=== PATIENT | female | born 1985 ===

== ENCOUNTER 2017-06-15 21:10 | Emergency (ER) | payer SELFPAY ==
[2017-06-15 21:21] VITALS: BP 154/90; PULSE 77; RESP 20; TEMP 97.6; O2SAT 100
[2017-06-15] MEDS ORDERED: Tetanus/Diphtheria Toxoids 0.5 ml Syringe IM ONE ×2 (21:24→21:28)
[2017-06-15] MEDS ORDERED: Amoxicillin-Clav 875-125 mg Tab PO STA (21:30)
--- NOTE | 2017-06-15 21:31 | C.PDOC ---
History Of Present Illness 32 year old female presents to the ED for evaluation of a dog bite to her nose. Patient states her dog was sleeping and she went to move it, therefore startling the dog, who lunged at her nose. The dog is of mix breed, and up to date with all vaccines. Patients tetanus is not up to date. Time Seen by Provider: 06/15/17 21:22 Chief Complaint (Nursing): Bite History Per: Patient History/Exam Limitations: no limitations Onset/Duration Of Symptoms: Hrs Current Symptoms Are (Timing): Still Present - Animal Bite Description Of The Attack: Tried To Pet Animal Description Of The Animal: Family Pet Reports Animal Appears: Well Reports Animal's Immunization Status: UTD Past Medical History Reviewed: Historical Data, Nursing Documentation, Vital Signs Vital Signs: Last Vital Signs Temp 97.6 F 06/15/17 21:18 Pulse 77 06/15/17 21:18 Resp 20 06/15/17 21:18 BP 154/90 H 06/15/17 21:18 Pulse Ox 100 06/15/17 21:41 - Medical History PMH: No Chronic Diseases Surgical History: No Surg Hx Family History: States: No Known Family Hx - Social History Hx Tobacco Use: No Hx Alcohol Use: No Hx Substance Use: No - Immunization History Hx Tetanus Toxoid Vaccination: No Hx Influenza Vaccination: No Hx Pneumococcal Vaccination: No Review Of Systems Skin: Positive for: Lesions (dog bite to nose) Neurological: Negative for: Numbness (or tingling) Physical Exam - Physical Exam Appears: Non-toxic, No Acute Distress Skin: Warm, Dry, No Rash Head: Atraumatic, Normacephalic Eye(s): bilateral: Normal Inspection Nose: No Epistaxis, No Septal Hematoma, Other (1 cm wedge shaped flap to tip of nose, no active bleeding) Oral Mucosa: Moist Neck: Normal ROM, Supple Chest: Symmetrical Cardiovascular: Rhythm Regular, No Murmur Respiratory: Normal Breath Sounds, No Accessory Muscle Use Extremity: Bilateral: Atraumatic, Normal ROM Neurological/Psych: Oriented x3, Normal Speech, No Other (focal deficits) Gait: Steady ED Course And Treatment O2 Sat by Pulse Oximetry: 100 (RA) Pulse Ox Interpretation: Normal Laceration - Laceration Repair Nose Wound Length (In cm): 1 Wound Cleansed With: Betadine, Sterile Saline (200 ml) Wound Examination: Irrigated With Saline, No FB With Wound Exploration Wound Closure: Steri Strips (x1) Wound Complexity: Simple Medical Decision Making Medical Decision Making: Impression: 32 year old with dog bite Time: 21:24 Plan: * Augmentin 1 tab PO * Tetanus booster vaccine * Tylenol 650 mg PO Applied steri strip to wound (see procedure note) Patient is medically stable Will discharge home with antibiotics Disposition Counseled Patient/Family Regarding: Diagnosis, Need For Followup, Rx Given - Disposition Referrals: Vicente Pimentel MD [Medical Doctor] - Disposition: HOME/ ROUTINE Disposition Time: 21:41 Condition: GOOD Additional Instructions: Keep area clean and dry. May wash gently with soap and water. Steri strip will fall off in few days. Return to ER if fever occurs, redness or swelling around wound, pus in the wound. 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 - Scribe Statement The provider has reviewed the documentation as recorded by the Scribe (Kadi Sebastian) All medical record entries made by the Scribe were at my direction and personally dictated by me. I have reviewed the chart and agree that the record accurately reflects my personal performance of the history, physical exam, medical decision making, and the department course for this patient. I have also personally directed, reviewed, and agree with the discharge instructions and disposition.
[2017-06-15] MEDS ORDERED: Amoxicillin-Clav 875-125 mg Tab PO ONE (21:41)
== END 2017-06-15 21:52 | disposition home or self-care (01) ==
LOC: C.ER 21:10
DX: S01.25XA Open bite of nose, initial encounter (principal); W54.0XXA Bitten by dog, initial encounter; Z23 Encounter for immunization